=== PATIENT | male | born 1960 | race African-American/Black ===

== ENCOUNTER 2022-12-25 18:13 | Emergency (ER) | payer OTHER ==
[2022-12-25 18:28] VITALS: BP 165/110; PULSE 87; RESP 18; TEMP 98.6; BMI 28.5
== END 2022-12-25 19:30 | disposition home or self-care (01) ==
LOC: JER 18:13
DX: I10 Essential (primary) hypertension (principal)
CPT/HCPCS: 99282-25

== ENCOUNTER 2023-11-16 13:39 | Emergency (ER) | payer OTHER ==
[2023-11-16 13:44] VITALS: BP 128/81; PULSE 61; RESP 20; TEMP 97.9; BMI 27.1
[2023-11-16] MEDS ORDERED: predniSONE 20 MG TABLET (UD) PO ONE (15:19)
[2023-11-16] MEDS ORDERED: ALBUTEROL SO4 2.5/IPRATROPIUM 0.5 INH SOL 3 ML VIAL.NEB. NEB ONE ×2 (15:19→15:24)
[2023-11-16] MEDS ORDERED: predniSONE 20 MG TABLET (UD) ONE (15:24)
== END 2023-11-16 15:57 | disposition home or self-care (01) ==
LOC: JER 13:39 → JERFT 13:39 → JER 15:57
PROC: 3E0F7GC Introduction of Other Therapeutic Substance into Respiratory Tract, Via Natural or Artificial Opening (ICD-10-PCS; principal; 2023-11-16)
DX: J40 Bronchitis, not specified as acute or chronic (principal); J10.1 Influenza due to other identified influenza virus with other respiratory manifestations; Z20.822 Contact with and (suspected) exposure to COVID-19
CPT/HCPCS: 0241U-QW; 71046-TC-FY; 99284-25

== ENCOUNTER 2024-04-15 14:29 | Emergency (ER) | payer OTHER ==
[2024-04-15 14:55] VITALS: BP 153/111; PULSE 80; RESP 18; TEMP 98.4; BMI 27.1
[2024-04-15] MEDS ORDERED: LOSARTAN POTASSIUM 25 MG TABLET ONE (15:11)
[2024-04-15] MEDS: LOSARTAN POTASSIUM 25 MG TABLET PO ONE (15:14)
== END 2024-04-15 15:35 | disposition home or self-care (01) ==
LOC: JERFT 14:29
DX: I10 Essential (primary) hypertension (principal)
CPT/HCPCS: 99283-25

== ENCOUNTER 2024-05-22 10:14 | Emergency (ER) | payer OTHER ==
[2024-05-22] MEDS ORDERED: LOSARTAN POTASSIUM 25 MG TABLET ONE (10:32)
[2024-05-22] MEDS: LOSARTAN POTASSIUM 25 MG TABLET PO ONE (10:34)
[2024-05-22 12:05] VITALS: BP 149/102; PULSE 74; RESP 20; TEMP 98.6; BMI 26.4
== END 2024-05-22 11:16 | disposition home or self-care (01) ==
LOC: JERFT 10:14
DX: I10 Essential (primary) hypertension (principal); Z87.891 Personal history of nicotine dependence; Z76.0 Encounter for issue of repeat prescription
CPT/HCPCS: 99283-25

== ENCOUNTER 2024-06-24 11:29 | Emergency (ER) | payer OTHER ==
[2024-06-24 11:43] VITALS: BP 152/95; PULSE 75; RESP 17; TEMP 98; BMI 27.1
== END 2024-06-24 12:18 | disposition home or self-care (01) ==
LOC: JERFT 11:29
DX: I10 Essential (primary) hypertension (principal); Z76.0 Encounter for issue of repeat prescription
CPT/HCPCS: 99281-25

== ENCOUNTER 2024-08-04 10:47 | Emergency (ER) | payer OTHER ==
[2024-08-04 10:55] VITALS: BP 174/115; PULSE 75; RESP 18; TEMP 98.1; BMI 27.1
== END 2024-08-04 11:51 | disposition home or self-care (01) ==
LOC: JER 10:47
DX: Z76.0 Encounter for issue of repeat prescription (principal); I10 Essential (primary) hypertension
CPT/HCPCS: 99283-25

== ENCOUNTER 2024-12-27 15:21 | Emergency (ER) | payer OTHER ==
[2024-12-27 15:29] VITALS: BP 165/104; PULSE 64; RESP 18; TEMP 98.6; BMI 26.4
== END 2024-12-27 16:19 | disposition home or self-care (01) ==
LOC: JERFT 15:21
DX: Z76.0 Encounter for issue of repeat prescription (principal)
CPT/HCPCS: 99283-25

== ENCOUNTER 2025-01-27 10:47 | Emergency (ER) | payer OTHER ==
[2025-01-27 11:01] VITALS: BP 157/110; PULSE 56; RESP 16; TEMP 98.3; BMI 26.4
[2025-01-27] MEDS ORDERED: LOSARTAN POTASSIUM 25 MG TABLET ONE (13:09)
[2025-01-27] MEDS: LOSARTAN POTASSIUM 25 MG TABLET PO ONE (13:12)
== END 2025-01-27 14:29 | disposition home or self-care (01) ==
LOC: JERFT 10:47
DX: I10 Essential (primary) hypertension (principal); Z76.0 Encounter for issue of repeat prescription
CPT/HCPCS: 99283-25